=== PATIENT | female | born 1980 | race Caucasian/White ===

== ENCOUNTER 2019-04-12 14:29 | Inpatient (IN) | payer BC ==
[~2019-04-12] VITALS: Ht 162.6 cm; Wt 83.8 kg
[2019-04-12 20:44] VITALS: Ht 162.6 cm; Wt 83.8 kg
[2019-04-12] MEDS ORDERED: LACTATED RINGER'S 1,000 ML IV PRN (20:45)
[2019-04-12] MEDS ORDERED: MISOPROSTOL 200 MCG TAB PR PRN (21:00)
[2019-04-12] MEDS ORDERED: IBUPROFEN 600 MG TAB PO PRN (21:00)
[2019-04-12] MEDS ORDERED: CARBOPROST 250 MCG INJ IM PRN (21:00)
[2019-04-12] MEDS ORDERED: OXYTOCIN 30 UNITS/LR 500 ML IV SCH ×3 (21:00→22:00)
[2019-04-12] MEDS ORDERED: METHYLERGONOVINE 0.2 MG INJ IM PRN (21:00)
[2019-04-12] MEDS ORDERED: OXYTOCIN 30 UNITS/LR 500 ML IV PRN (21:00)
[2019-04-12] MEDS ORDERED: BUTORPHANOL 2 MG INJ IV PRN (21:00)
[2019-04-12] MEDS ORDERED: LIDOCAINE 1% (MPF) 30 ML INJ INJ PRN (21:00)
[2019-04-12] MEDS: LACTATED RINGER'S 1,000 ML IV SCH (21:05)
[2019-04-12] MEDS ORDERED: MISOPROSTOL 50 MCG CAPSULE VAG ONE (22:00)
[2019-04-13] MEDS ORDERED: MISOPROSTOL 50 MCG CAPSULE PO SCH (01:00)
--- NOTE | 2019-04-13 07:25 | HP ---
Date/Time of Note Date/Time of Note DATE: 04/13/19 TIME: 07:23 OB - History Hx of Present Free Text/Dictation 39-year-old 6 para 3 with at 40 weeks and 2 days with due date April 11, 2019 presents to labor and delivery for induction of labor. She was admitted last night and received 1 dose of Cytotec and she is still memo after that. At this time her cervix is 2 cm 60% -2. Artificial rupture of membrane was done and amniotic fluid are clear. She also desires permanent sterilization. NST is reactive with accelerations present and moderate variability and no decelerations. Care: Good Care Ultrasounds: Normal mid trimester US Obstetrical Complications: None Medical Complications: None Past Family/Social History * Past Medical, Surgical, Family and Obstetric Histories reviewed from chart. OB Admission Exam Physical Exam HEENT: WNL Heart: Rhythm Normal Lungs: Clear, Equal Abdomen: WNL Extremities: Normal Reflexes: Normal Cervical Dilatation: 2cm Effacement: 50% Station: -2 Last 72 hours Lab Results CBC & BMP 04/12/19 21:00 OB Assessment/Plan Reason for admission: induction of labor Induction Method: per Pitocin Protocol SIDNEY ANAYA MD Apr 13, 2019 07:25
--- NOTE | 2019-04-13 08:14 | PREAC ---
Date/Time of Note Date/Time of Note DATE: 04/13/19 TIME: 08:14 Anesthesia Eval and Record Evaluation Time Pre-Procedure Interview DATE: 04/13/19 TIME: 08:14 Age 39 Sex female NPO: 8 hrs Preoperative diagnosis intrauterine Planned procedure labor epidural Past Medical History Past Medical History: Includes : : (6), Para: (3), Gestational age: (40.2) Surgery & Anesthesia Issues No known issue Meds Anticoagulation: No Beta Truman within 24 hr: No Reason Beta Truman not given: Pt. not on B-Truman No Active Prescriptions or Reported Meds Current Medications Lactated Ringer's 1,000 ml @ 125 mls/hr Q8H IV Last administered on 04/12/19at 21:05; Admin Dose 125 MLS/HR; Start 04/12/19 at 20:45 Butorphanol Tartrate (Stadol) 2 mg Q2H PRN IV .PAIN SCALE 6-10; Start 04/12/19 at 21:00 Lidocaine (Xylocaine 1% (Mpf)) 30 ml ONCE PRN INJ .EPISIOTOMY; Start 04/12/19 at 21:00 Oxytocin/Lactated Ringer's 500 ml @ 500 mls/hr ONCE POST IV ; Start 04/12/19 at 21:00 Oxytocin/Lactated Ringer's 500 ml @ 125 mls/hr POST IV ; Start 04/12/19 at 21:00 Ibuprofen (Motrin) 600 mg ONCE PRN PO .PAIN 1-5; Start 04/12/19 at 21:00 Lactated Ringer's 1,000 ml @ 2,000 mls/hr Q30M PRN IV .ANESTHESIA Last admini stered on 04/13/19at 02:25; Admin Dose 2,000 MLS/HR; Start 04/12/19 at 20:45 Oxytocin/Lactated Ringer's 500 ml @ 0 mls/hr ONCE PRN IV .VAGINAL BLEEDING; Start 04/12/19 at 21:00 Methylergonovine Maleate (Methergine) 0.2 mg ONCE PRN IM .VAGINAL BLEEDING; Start 04/12/19 at 21:00 Carboprost Tromethamine (Hemabate) 250 mcg ONCE PRN IM .VAGINAL BLEEDING; Start 04/12/19 at 21:00 Misoprostol (Cytotec) 1,000 mcg ONCE PRN LA .VAGINAL BLEEDING; Start 04/12/19 at 21:00 Lactated Ringer's 1,000 ml @ 2,000 mls/hr Q30M PRN IV .ANESTHESIA; Start 04/12/19 at 21:46 Oxytocin/Lactated Ringer's 500 ml @ 0 mls/hr FOR AUGMENTATION IV ; Start 04/12/19 at 22:00 Misoprostol (Cytotec 50 Mcg Capsule) 50 mcg Q4 PO Last administered on 04/13/19at 01:06; Admin Dose 50 MCG; Start 04/13/19 at 01:00 Meds reviewed: Yes Allergies Coded Allergies: No Known Allergy (Unverified , 04/12/19) Allergies Reviewed: Yes Labs/Studies Labs Reviewed: Reviewed by anesthesiologist Result Diagram: 04/12/19 2100 Laboratory Tests 04/12/19 21:00 Blood Bank Test 04/12/19 21:00 Antibody Screen NEGATIVE Blood Type O POSITIVE Rh Immune Globulin Candidate NO test: N/A Pre-procedure Exam Airway: Adequate mouth opening, Adequate thyromental dist Mallampati: Mallampati II Teeth: Normal Lung: Normal Heart: Normal ASA Physical Status ASA physical status: 2 Emergency: None Planned Anesthetic Neuraxial: Epidural Planned Pain Management Epidural, Parenteral pain med Pre-operative Attestations Prior to commencing anesthesia and surgery, the patient was re-evaluated, there was verification of: *The patient's identity *The results of appropriate recent lab work and preoperative vital signs *The above evaluation not changing prior to induction *Anesthetic plan, risk benefits, alternative and complications discussed with patient/family; questions answered; patient/family understands, accepts and wishes to proceed. LOIDA LEMON MD Apr 13, 2019 08:14
[2019-04-13] MEDS: LACTATED RINGER'S 1,000 ML IV PRN ×2 (08:19→09:15)
[2019-04-13] MEDS ORDERED: NALOXONE (0.4 MG/ML) INJ IV PRN (08:30)
[2019-04-13] MEDS ORDERED: FENTAnyl 2MCG/ML-ROPIV 0.2% 100 ML BAG EPI SCH (08:30)
[2019-04-13] MEDS ORDERED: DIPHENHYDRAMINE 50 MG INJ IV PRN (08:30)
[2019-04-13] MEDS ORDERED: ONDANSETRON 4 MG INJ IV PRN ×2 (08:30→13:00)
--- NOTE | 2019-04-13 10:06 | PAC ---
Date/Time of Note Date/Time of Note DATE: 04/13/19 TIME: 10:05 Post-Anesthesia Notes Post-Anesthesia Note Last documented vital signs BP: 109/78 HR: 62 RR: 15 T: 98 SaO2: 100% Activity: WNL Respiratory function: WNL Cardiovascular function: WNL Mental status: Baseline Pain reasonably controlled: Yes Hydration appropriate: Yes Nausea/Vomiting absent: Yes LOIDA LEMON MD Apr 13, 2019 10:06
[2019-04-13] MEDS: LACTATED RINGER'S 1,000 ML IV SCH (10:49)
[2019-04-13] MEDS ORDERED: OXYTOCIN 30 UNITS/LR 500 ML IV SCH ×2 (11:00→12:40)
--- NOTE | 2019-04-13 12:40 | LDN ---
Date/Time of Note Date/Time of Note DATE: 04/13/19 TIME: 12:36 Delivery Summary April 13, 2019 Weeks of Gestation 40 weeks plus Placenta Delivered: Spontaneously Meconium: none Episiotomy: No Indication for episiotomy N/A Perineal laceration: 1 Laceration repair: first degree RT inner labia minora noted that repaired using 3-0 Anesthesia type: Epidural Estimated blood loss: 200 Sponge & Needle done & correct: Yes All needle counts correct: Yes Any foreign bodies felt in the: No Mother & Baby Disposition Disposition Placenta was noted to have blood behind the placenta , consistent with Abruption. placenta sent to pathology. Mom & Baby to Maternity; Good: Yes Baby to NICU: No GRACIA LORENZ MD Apr 13, 2019 12:40
[2019-04-13] MEDS: OXYTOCIN 30 UNITS/LR 500 ML IV SCH ×3 (13:00→21:00)
[2019-04-13] MEDS ORDERED: NACL 0.9% 3 ML SYG IV SCH (13:00)
[2019-04-13] MEDS ORDERED: OXYTOCIN 30 UNITS/LR 500 ML IV PRN (13:00)
[2019-04-13] MEDS ORDERED: ZOLPIDEM 5 MG TAB PO PRN (13:00)
[2019-04-13] MEDS ORDERED: DIPHENHYDRAMINE 25 MG CAP PO PRN (13:00)
[2019-04-13] MEDS ORDERED: HYDROCODONE/APAP (5/325) TAB PO PRN (13:00)
[2019-04-13] MEDS ORDERED: CARBOPROST 250 MCG INJ IM PRN (13:00)
[2019-04-13] MEDS ORDERED: OXYTOCIN 30 UNITS/LR 500 ML IVPB ONE (13:00)
[2019-04-13] MEDS ORDERED: MISOPROSTOL 200 MCG TAB PR PRN (13:00)
[2019-04-13 14:51] VITALS: BP 122/63; PULSE 70; RESP 16
[2019-04-13 17:30] VITALS: BP 117/68; PULSE 87; RESP 19
[2019-04-13] MEDS: IBUPROFEN 600 MG TAB PO SCH ×2 (18:00→23:24)
[2019-04-13 20:00] VITALS: BP 115/62; PULSE 87; RESP 18
[2019-04-13] MEDS ORDERED: WITCH HAZEL/GLYCERIN PAD PR PRN (23:00)
[2019-04-13] MEDS ORDERED: DIBUCAINE 1% 30 GM OINT TOP PRN (23:00)
[2019-04-13] MEDS ORDERED: BENZOCAINE 20% 56 ML SPRAY TOP PRN (23:00)
[2019-04-13] MEDS: SENNA TAB PO SCH (23:32)
[2019-04-14] VITALS: BP 111/68; PULSE 77; RESP 18
[2019-04-14] MEDS: OXYTOCIN 30 UNITS/LR 500 ML IV SCH ×4 (01:00→13:00)
[2019-04-14 04:00] VITALS: BP 105/61; PULSE 76; RESP 18
[2019-04-14] MEDS: IBUPROFEN 600 MG TAB PO SCH ×4 (06:00→23:21)
[2019-04-14 08:00] VITALS: BP 110/77; PULSE 71; RESP 18
[2019-04-14] MEDS: SENNA TAB PO SCH ×2 (09:34→20:43)
[2019-04-14 12:00] VITALS: BP 106/68; PULSE 70; RESP 20
[2019-04-14 16:00] VITALS: BP 107/55; PULSE 82; RESP 20
--- NOTE | 2019-04-14 17:32 | DS ---
Date/Time of Note Date/Time of Note DATE: 04/14/19 TIME: 17:32 Obstetrical Discharge Record Final Diagnosis Final Diagnosis: Term delivered Vaginal Delivery Obstetrical Delivery: Spontaneous Complications Augmentation: Yes Induction: Yes Rupture of Membranes: No Condition on Discharge Physical Assessment Voiding: Yes Bowel Movement: Yes Breast: Soft, non-tender, Filling Fundus: Firm Abdomen and Incision: Soft not tender Calf Tenderness: No Patient Condition: Good SIDNEY ANAYA MD Apr 14, 2019 17:32
[2019-04-14 20:00] VITALS: BP 117/61; PULSE 72; RESP 20
[2019-04-15 03:14] VITALS: BP 112/66; PULSE 74; RESP 18
[2019-04-15] MEDS: IBUPROFEN 600 MG TAB PO SCH (05:16)
[2019-04-15 07:45] VITALS: BP 109/74; PULSE 67; RESP 18
[2019-04-15] MEDS: SENNA TAB PO SCH (09:52)
--- NOTE | 2019-04-16 14:42 | DELSUM ---
Delivery Summary A-C Datetime Report Generated by CPN: 04/16/2019 14:42 DELIVERY PERSONNEL Manufacturing Inspector: Proctor, Nikko MATERNAL INFORMATION Delivery Anesthesia: Epidural Medications in Delivery: LR WITH pitocin 30 Delivery QBL (ml): 200 Placenta Cultured: No Maternal Complications: None LABOR SUMMARY EDC: 04/12/2019 00:00 No. Babies in Womb: 1 Attempted: No Labor Anesthesia: Epidural LABOR INFORMATION Reason for Induction: Other Reason for Induction- Other: 40.1WKS Onset of Labor: 04/12/2019 20:00 Complete Dilatation: 04/13/2019 11:41 Group B Beta Strep: Negative Antibiotics # of Doses: 0 Steroids Given: None Reason Steroids Not Administered: Not Applicable MEMBRANES Membranes Rupture Method: Artificial Rupture of Membranes: 04/13/2019 07:17 Length of Rupture (hr): 5.07 Amniotic Fluid Color: Clear Amniotic Fluid Amount: Small Amniotic Fluid Odor: None STAGES OF LABOR Stage 1 hr: 15 Stage 1 min: 41 Stage 2 hr: 0 Stage 2 min: 40 Stage 3 hr: 0 Stage 3 min: 3 Total Time in Labor hr: 16 Total Time in Labor min: 24 VAGINAL DELIVERY Episiotomy: None Laceration Extension: First Degree Laceration Type: Perineal Laceration Repair: Yes Initial Vag Sponge Count: 10 Final Vag Sponge Count: 10 Initial Vag Sharps Count: 1 Final Vag Sharps Count: 2 Sponge Count Correct: Yes; Vaginal Sweep Performed Sharps Count Correct: Yes BABY A INFORMATION Infant Delivery Date/Time: 04/13/2019 12:21 Method of Delivery: Vaginal Born in Route : No : N/A Forceps: N/A Vacuum Extraction: N/A Shoulder Dystocia : N/A SHOULDER DYSTOCIA BABY A Infant Delivery Date/Time: 04/13/2019 12:21 PRESENTATION/POSITION BABY A Presentation: Cephalic Cephalic Presentation: Vertex Vertex Position: Left Occipital Anterior Breech Presentation: N/A PLACENTA INFORMATION BABY A Placenta Delivery Time : 04/13/2019 12:24 Placenta Method of Delivery: Spontaneous Placenta Status: Delivered SCORES BABY A Heart Rate 1 min: >100 bpm Resp Effort 1 min: Good Cry Reflex Irritability 1 min: Cough/Sneeze/Pulls Away Muscle Tone 1 min: Active Motion Color 1 min: Body Harrell, Extremit Blue Resuscitation Effort 1 min: Tactile Stimulation SCORE 1 MIN: 9 Heart Rate 5 min: >100 bpm Resp Effort 5 min: Good Cry Reflex Irritability 5 min: Cough/Sneeze/Pulls Away Muscle Tone 5 min: Active Motion Color 5 min: Body Harrell, Extremit Blue Resuscitation Effort 5 min: Tactile Stimulation SCORE 5 MIN: 9 INFORMATION BABY A Gestational Age at Delivery: 40.1 Gestational Status: Full Term- 39- 40.6 Weeks Infant Outcome : Liveborn, with signs of life Condition : Stable Infant Sex: Male IDENTIFICATION/MEDS BABY A ID Band Number: [id number] Sensor Applied: Yes Sensor Number: [id number] Sensor Location : Cord Clamp WEIGHT/LENGTH BABY A Infant Birthweight (gm): 2915 Weight (lb): 6 Weight (oz): 7 Length (in): 19.00 Infant Length (cm): 48.26 CORD INFORMATION BABY A No. Cord Vessels: 3 Nuchal Cord : N/A Cord Blood Taken: Yes Banking/Donate Info: NO Suction: Mouth; Nose ASSESSMENT BABY A Complications: Multiple Variable Decels Physical Findings at Delivery: Molding of the Head; Within Normal Limits Respirations: Appears Normal Screener And Blender/ALS Called : No Care By: RTBrian AND Anton BULLOCK RN Transferred To: Remains with Mother
== END 2019-04-15 14:42 | disposition home or self-care (01) | DRG 807 ==
LOC: L-D 19:55 → EDSTATUS 19:58 → PP1 04-13 17:50
PROVIDERS: ADMIT Specialist; ATTEND Specialist
PROC: 10E0XZZ Delivery of Products of Conception, External Approach (ICD-10-PCS; principal; 2019-04-13)
PROC: 0HQ9XZZ Repair Perineum Skin, External Approach (ICD-10-PCS; 2019-04-13)
PROC: 10907ZC Drainage of Amniotic Fluid, Therapeutic from Products of Conception, Via Natural or Artificial Opening (ICD-10-PCS; 2019-04-13)
DX: O45.93 Premature separation of placenta, unspecified, third trimester (principal); Z37.0 Single live birth; O70.0 First degree perineal laceration during delivery; Z3A.40 40 weeks gestation of pregnancy
CPT/HCPCS: 62322; 85025; 85610; 85730; 86592; 86850; 86900; 86901; 87340; 88307; 99464; J2590; J3010; J7120